=== PATIENT | male | born 2000 | race Caucasian/White ===

== ENCOUNTER 2019-07-07 10:14 | Emergency (ER) | payer OTHER ==
[~2019-07-07] VITALS: Ht 182.9 cm; Wt 64.8 kg
[2019-07-07 10:19] VITALS: BP 106/63
[2019-07-07] MEDS ORDERED: DIPH,PERTUSS(ACELL),TET VAC/PF 0.5 ML IM-VACC ONE ×2 (10:25→10:30)
[2019-07-07] MEDS ORDERED: LIDOCAINE-MPF 1%, 5ML ONE (10:25)
[2019-07-07] MEDS ORDERED: LIDOCAINE-MPF 1%, 5ML INFIL ONE (10:30)
[2019-07-07] MEDS ORDERED: TRANEXAMIC ACID 100 MG/ML, 10ML TP ONE (10:30)
[2019-07-07] MEDS ORDERED: TRANEXAMIC ACID 100 MG/ML, 10ML ONE (10:32)
[2019-07-07] MEDS ORDERED: CEPHALEXIN 500 MG CAPSULE PO ONE (11:00)
[2019-07-07] MEDS ORDERED: CEPHALEXIN 500 MG CAPSULE ONE (11:01)
[2019-07-07] MEDS ORDERED: NEOSPORIN OINT. PKT 1 PACKET ONE (11:41)
== END 2019-07-07 12:28 | disposition home or self-care (01) ==
LOC: ED 12:25
DX: S61.210A Laceration without foreign body of right index finger without damage to nail, initial encounter (principal); Z89.021 Acquired absence of right finger(s); X58.XXXA Exposure to other specified factors, initial encounter; Y93.89 Activity, other specified; Y92.89 Other specified places as the place of occurrence of the external cause; Y99.8 Other external cause status
CPT/HCPCS: 64450; 90471; 90715

== ENCOUNTER 2019-08-07 16:25 | Emergency (ER) | payer OTHER ==
[~2019-08-07] VITALS: Ht 175.3 cm; Wt 68.2 kg
[2019-08-07 18:46] VITALS: BP 128/73
== END 2019-08-07 19:03 | disposition home or self-care (01) ==
LOC: ED 18:45
DX: S93.421A Sprain of deltoid ligament of right ankle, initial encounter (principal); S43.421A Sprain of right rotator cuff capsule, initial encounter; V27.4XXA Motorcycle driver injured in collision with fixed or stationary object in traffic accident, initial encounter; Y93.89 Activity, other specified; Y92.410 Unspecified street and highway as the place of occurrence of the external cause; Y99.8 Other external cause status
CPT/HCPCS: 99283